=== PATIENT | female | born 1990 | race Two or more races ===

== ENCOUNTER → 2018-12-08 | Outpatient (CLI) | payer BC, OTHER ==
--- NOTE | 2018-12-08 10:22 | RADIOLOGY REPORT (SQ) ---
EXAM DESCRIPTION: NM HIDA SCAN WITH CCK COMPLETED DATE/TIME: 12/08/2018 10:01 am REASON FOR STUDY: RUQ PAIN (R10.11) R10.11 RIGHT UPPER QUADRANT PAIN COMPARISON: None. RADIONUCLIDE AND DOSE: DOSAGE RADIONUCLIDE: 5.2 millicuries Tc99m mebrofenin DOSAGE CCK: 2.0 micrograms. DOSAGE MORPHINE: Not required. The route of agent administration: Intravenous TECHNIQUE: Serial imaging right upper quadrant up to 60 minutes following injection of radionuclide. CCK injected after gallbladder visualized. LIMITATIONS: None. FINDINGS: LIVER: Normal visualization without areas of photopenia. INTRAHEPATIC BILE DUCTS: Normal size and no delay in visualization. COMMON BILE DUCT: Normal without dilatation. GALLBLADDER: Normal visualization. Calculated ejection fraction of 41%. Normal range is greater th an 35%. PHYSICAL RESPONSE: Patients presenting complaint was reproduced, with mid epigastric pain. OTHER: No other significant finding. IMPRESSION: No scintigraphic evidence of cystic duct or common duct obstruction. Normal gallbladder ejection fraction IV CCK reproduced the patient's symptoms TECHNICAL DOCUMENTATION: JOB ID: [id number] [employer]- All Rights Reserved Reading location - IP/workstation name: [email or web address]
== END ==
LOC: RAD 07:29
PROVIDERS: ATTEND Physician Assistant
DX: R10.11 Right upper quadrant pain (principal)
CPT/HCPCS: 78227; J2805; A9537; Q9969

== ENCOUNTER 2019-01-19 10:55 | Day surgery (SDC) | payer BC, OTHER ==
[2019-01-13 10:03] LABS: HEMATOCRIT 41.4 % (36.0-47.0); HEMOGLOBIN 13.6 g/dL (12.0-15.5); MEAN CORPUSCULAR HEMOGLOBIN 31.1 pg (27.0-33.4); MEAN CORPUSCULAR HGB CONC 32.9 g/dL (32.0-36.0); MEAN CORPUSCULAR VOLUME 95 fl (80-97); PLATELET COUNT 393 10^3/uL (150-450); RED BLOOD COUNT 4.39 10^6/uL (3.72-5.28); RED CELL DISTRIBUTION WIDTH 13.2 % (11.5-14.0); WHITE BLOOD COUNT 12.1 10^3/uL (4.0-10.5)
--- NOTE | 2019-01-13 13:44 | EKG REPORT ---
SEVERITY:- ABNORMAL ECG - SINUS RHYTHM NONSPECIFIC T ABNORMALITIES, INFERIOR LEADS : Confirmed by: Lamine Raymundo MD 13-Jan-2019 13:43:37
[~2019-01-19 10:55] MED LIST: ACETAMINOPHEN 325 MG TABLET PO PRN; CEFAZOLIN 1 GM/D5W RTU 1 GM/50 ML RTUPB IV PRN; LACTATED RINGERS 1000 ML IV PRN; LIDOCAINE 0.5% INJ-PF (5 MG/ML) 50 ML SDV SUBCUT PRN
[2019-01-19] MEDS ORDERED: CEFAZOLIN 1 GM/D5W RTU 1 GM/50 ML RTUPB IV ONE (12:59)
[2019-01-19] MEDS ORDERED: LIDOCAINE 1% INJ-PF (10 MG/ML) 30 ML SDV ONE (13:15)
[2019-01-19] MEDS ORDERED: BUPIVACAINE HCL 0.25% /EPINEPHRINE INJ/PF 30 ML SDV ONE (13:16)
[2019-01-19] MEDS ORDERED: FENTANYL CITRATE INJ/PF 250 MCG/5 ML AMPULE ONE (13:17)
[2019-01-19] MEDS ORDERED: PROPOFOL INJ 200 MG/20 ML VIAL IV ONE (13:18)
[2019-01-19] MEDS ORDERED: MIDAZOLAM 2 MG/2 ML INJ ONE (13:18)
--- NOTE | 2019-01-19 14:18 | Discharge Summary ---
Discharge Summary (SDC) - Discharge Final Diagnosis: lipoma right abdominal wall umbilical hernia Date of Surgery: 01/19/19 Condition: Good Treatment or Instructions: no wt greater than 10lbs for 4wks. ok to shower. Referrals: ALFREDO FINNEY PA [Primary Care Provider] - Discharge Diet: As Tolerated Discharge Activity: Activity As Tolerated, No Lifting Over 10 Pounds Report the Following to Your Physician Immediately: Shortness of Breath, Nausea, Vomiting, Increase in Pain - f/u with surgery clinic in 10-14 days., Unusual Bleeding
[2019-01-19] MEDS ORDERED: OXYCODONE-ACETAMINOPHEN 5-325 MG TABLET PO PRN ×3 (14:20→14:31)
--- NOTE | 2019-01-19 14:20 | Operative Report ---
Nonrecallable Operative Report DATE OF SURGERY: 01/19/19 PREOPERATIVE DIAGNOSIS: lipoma right abdominal wall. umbilical hernia POSTOPERATIVE DIAGNOSIS: lipoma right abdominal wall. umbilical hernia OPERATION: excision lipoma right abdominal wall, umbilical hernia repair. SURGEON: HELENA DESIR 1ST [employer]ATE[employer]ETING ASSOCIATE: VON NAYLOR ANESTHESIA: GA TISSUE REMOVED OR ALTERED: none COMPLICATIONS: none ESTIMATED BLOOD LOSS: 10cc INTRAOPERATIVE FINDINGS: see dictation
[2019-01-19] MEDS ORDERED: MEPERIDINE HCL/PF INJ 25 MG/1 ML DISP.SYRIN IV PRN (14:31)
[2019-01-19] MEDS ORDERED: FENTANYL CITRATE INJ/PF 100 MCG/2 ML AMPUL IV PRN ×2 (14:31)
[2019-01-19] MEDS ORDERED: DIPHENHYDRAMINE HCL 50 MG/ML VIAL IV PRN (14:31)
[2019-01-19] MEDS ORDERED: PROMETHAZINE HCL INJ 25 MG/1 ML VIAL IV PRN ×2 (14:31)
[2019-01-19] MEDS ORDERED: MORPHINE SULFATE 10 MG/ML INJ IV PRN (14:31)
[2019-01-19] MEDS ORDERED: FENTANYL CITRATE INJ/PF 100 MCG/2 ML AMPUL ONE (14:32)
[2019-01-19] MEDS: FENTANYL CITRATE INJ/PF 100 MCG/2 ML AMPUL IV PRN ×2 (14:33→14:41)
[2019-01-19] MEDS ORDERED: GLYCOPYRROLATE 1 MG/5 ML VIAL ONE (14:55)
[2019-01-19] MEDS ORDERED: NEOSTIGMINE METHYLSULFATE 10 MG/10 ML VIAL ONE (14:55)
[2019-01-19] MEDS ORDERED: LIDOCAINE 2% INJ-PF (20 MG/ML) 2 ML AMPUL ONE ×2 (14:55→14:56)
[2019-01-19] MEDS ORDERED: DEXAMETHASONE SOD PHOSPHATE INJ 4 MG/1 ML VIAL ONE ×2 (14:55→14:56)
[2019-01-19] MEDS ORDERED: ONDANSETRON HCL INJ/PF 4 MG/2 ML SDV ONE ×2 (14:55→14:56)
[2019-01-19] MEDS ORDERED: ROCURONIUM BROMIDE INJ 50 MG/5 ML VIAL IV ONE ×2 (14:55→14:56)
[2019-01-19] MEDS ORDERED: KETOROLAC TROMETHAMINE INJ/PF 30 MG/1 ML SDV ONE (15:00)
[2019-01-19] MEDS ORDERED: ACETAMINOPHEN 1,000 MG/100 ML RTUPB IV ONE (15:01)
[2019-01-19] MEDS ORDERED: OXYCODONE-ACETAMINOPHEN 5-325 MG TABLET ONE (15:48)
[2019-01-19 18:01] VITALS: BP 125/65
--- NOTE | 2019-01-19 19:15 | OPERATIVE REPORT E ---
Operative Report NAME: MARILOU CLEMENS : 1990 AGE: 29Y DATE OF SURGERY: 01/19/2019 ROOM: PREOPERATIVE DIAGNOSES: 1. ABDOMINAL WALL LIPOMA. 2. UMBILICAL HERNIA. POSTOPERATIVE DIAGNOSES: 1. ABDOMINAL WALL LIPOMA. 2. UMBILICAL HERNIA. OPERATION: SURGEON: HELENA DESIR M.D. RESOURCE AGENT: Nury Cordova, who was present for the entire procedure for wound retraction and wound closure. PROCEDURE: Patient was brought to the operating room in awake, alert and stable condition, placed on the operating table in supine position. Induced under general anesthesia and intubated. The abdomen was prepped and draped in the usual sterile manner for the procedure. She had a small mass, less than a centimeter in diameter, of the right abdominal wall. A small 3-cm incision was made over the mass palpated in the right lower quadrant. Dissection carried down through subcutaneous tissue with Bovie cautery. The fascia and the fat were divided with Bovie cautery until we reached an area of firmness, which appeared to be necrotic fat. It was excised with the Bovie cautery. There was no further mass that could be palpated through this incision and therefore we elected to close it. Hemostasis was obtained with Bovie cautery and the skin was closed with intracuticular 4-0 Biosyn. Attention was then turned to the umbilicus. A curvilinear incision was made infraumbilically and dissection was carried down through subcutaneous tissue with Bovie cautery. The umbilical stalk was dissected from the overlying and surrounding subcutaneous tissue and *------* with an umbilical tape. It was placed on traction. I then came across the umbilical stalk on the base of the abdominal wall with Bovie cautery, which released the umbilical tape. The hernia was small, probably 3 mm in diameter. It was grasped on each end with a Crystal clamp placed on traction and closed with interrupted [id number] placed 0 Vicryl suture. We then anesthetized the fascia above and below the repair and tacked the umbilical stalk back down to the abdominal wall with a 3-0 Vicryl and closed the subcutaneous tissue with interrupted 3-0 Vicryl and closed the skin with intracuticular 4-0 Biosyn. Steri-Strips completed the procedure. Estimated blood loss from the entire case was less than 10 mL. Sponge and needle counts correct x2. The patient was awakened in the operating room, extubated and transferred to recovery in stable condition. No complications. DICTATING PHYSICIAN: HELENA DESIR M.D. [id number] PHY#: [id number] ID: [id number] JOB#: [id number] ACCT: [id number] cc:HELENA DESIR M.D. >
== END 2019-01-19 16:50 | disposition home or self-care (01) ==
LOC: OROUT 10:55
PROVIDERS: ATTEND Surgery
DX: D17.9 Benign lipomatous neoplasm, unspecified (principal); K42.9 Umbilical hernia without obstruction or gangrene; K21.9 Gastro-esophageal reflux disease without esophagitis; F17.210 Nicotine dependence, cigarettes, uncomplicated
CPT/HCPCS: 93005; 36415; 85027; 81025; 93010; 49585; 22902; J2250; J3490 ×4; J0690; J1100; J3010 ×2; J1885; J2710; J2405; J2704; J0131; 300